=== PATIENT | female | born 1955 | race Caucasian/White ===

== ENCOUNTER 2017-03-03 07:37 | Day surgery (SDC) | payer BC, OTHER ==
[2017-03-01 14:36] VITALS: BMI 31.6
[~2017-03-03 07:37] MED LIST: LACTATED RINGERS 1,000 ML IV SCH; LIDOCAINE 1% 20 ML VIAL (10MG/ML) FOR IV START INTRADERMA PRN
[2017-03-03 08:03] VITALS: TEMP 97.8
[2017-03-03 08:11] LABS: Glucose,Whole Blood 144 mg/dL (75-99)
[2017-03-03] MEDS ORDERED: PROPOFOL 10 MG/ML 20 ML VIAL IV ONE (08:35)
--- NOTE | 2017-03-03 09:00 | P.PCN ---
Date of Procedure: 03/03/17 Procedure(s) Performed: BRIEF HISTORY: Patient is a 61-year-old pleasant white female, scheduled for an elective colonoscopy as a part of screening for colorectal neoplasia. PROCEDURE PERFORMED: Colonoscopy and snare polypectomy. PREOPERATIVE DIAGNOSIS: Screening for colon cancer. IV sedation per Anesthesia. PROCEDURE: After informed consent was obtained, the patient, was brought into the endoscopy unit. IV sedation was administered by Anesthesia under continuous monitoring. Digital rectal examination was normal. Initially the Olympus CF- 160 flexible video colonoscope was then inserted in the rectum, gradually advanced into the cecum without any difficulty. Careful examination was performed as the scope was gradually being withdrawn. Ileocecal valve and the appendiceal orifice were visualized and appeared normal. Prep was excellent. Mucosa of the cecum, ascending colon, transverse colon, descending colon, up in normal. In the sigmoid colon there was a 7-8 mm polyp removed by snare polypectomy. In the proximal rectum there was 2 polyps measuring 5 mm in size both of which were removed by snare polypectomy. The rest of the sigmoid colon , and rectum appeared normal. Retroflexion was performed in the rectum and no lesions were seen. The patient tolerated the procedure well. IMPRESSION: 7-8 mm sigmoid colon polyp serous was snare polypectomy. 5 mm 2 proximal rectal polyp status post polypectomy RECOMMENDATIONS: Findings of this examination were discussed with the patient as well as her family. She was advised to follow with the biopsy results. If the biopsy shows a tubular adenoma she can have a repeat colonoscopy in in 5 years.
[2017-03-03 09:07] VITALS: RESP 16
[2017-03-03 09:27] VITALS: BP 109/72; PULSE 72
== END 2017-03-03 09:43 | disposition home or self-care (01) ==
LOC: ORWHC2ENDO 07:37
PROVIDERS: ATTEND Internal Medicine Gastroenterology
DX: Z12.11 Encounter for screening for malignant neoplasm of colon (principal); D12.5 Benign neoplasm of sigmoid colon; D12.8 Benign neoplasm of rectum; I10 Essential (primary) hypertension; E11.9 Type 2 diabetes mellitus without complications; Z79.84 Long term (current) use of oral hypoglycemic drugs; F32.9 Major depressive disorder, single episode, unspecified; Z79.899 Other long term (current) drug therapy
CPT/HCPCS: 88305; 45385; J2704

== ENCOUNTER → 2018-03-02 | Outpatient (CLI) | payer BC ==
[2018-03-02 10:07] LABS: ALT 54 U/L (9-52); AST 46 U/L (14-36); Cholesterol 251 mg/dL (<200); HDL Cholesterol 39 mg/dL (40-60); LDL Cholesterol,Calculated 172 mg/dL (0-99); Triglycerides 198 mg/dL (<150)
== END ==
LOC: LABWHC1 08:19
PROVIDERS: ATTEND Internal Medicine
DX: E78.00 Pure hypercholesterolemia, unspecified (principal); K76.89 Other specified diseases of liver
CPT/HCPCS: 36415; 80061; 84450; 84460

== ENCOUNTER → 2019-06-02 | Outpatient (CLI) | payer MEDICARE ==
--- NOTE | 2019-06-02 14:16 | MR ---
EXAMINATION TYPE: MR brain wo/w con DATE OF EXAM: 06/02/2019 COMPARISON: NONE HISTORY: Cerebral infarction / Imbalance / Falls TECHNIQUE: Multiplanar, multisequence images of the brain and brainstem is performed without and with IV contras t, utilizing 10 mL intravenous Gadavist . FINDINGS: Diffusion weighted images demonstrate no evidence of a recent infarct or other diffusion ab normality. There is no extra-axial fluid collection. Scattered foci of T2/FLAIR hyperintensity are s een within the periventricular and some cortical white matter, mild in degree. The ventricular system and cisternal spaces are symmetrically prominent compatible with age-related volume loss. However gi remedios the prominence of the ventricular system normal pressure hydrocephalus could also be considered. There appears to be more prominence of the left ventricular system possibly from mild ex vacuo dilata tion of the posterior horn of the left lateral ventricle from lacunar injury with surrounding gliosis . Midline structures demonstrate normal morphology. The craniocervical junction appears within normal limits. Post contrast images demonstrate no abnormal enhancement. The dural venous sinuses appear pa tent. Variant venous drainage is seen. The visualized sinuses are clear and the globes are intact. Th ere is leftward nasal septal deviation present. IMPRESSION: 1. In addition to age-related volume loss there is diffuse ventricular prominence that may relate to normal pressure hydrocephalus. 2. Slight asymmetry and dilatation of the left lateral ventricle and surrounding gliosis of the occip ital horn likely from prior lacunar injury. 3. Mild burden nonspecific white matter change, likely on the basis of chronic microangiopathy. 4. No acute infarct, midline shift or mass effect. No abnormal intracranial enhancement.
== END | disposition home or self-care (01) ==
LOC: RADMRIMAIN 11:20
PROVIDERS: ATTEND Psychiatry & Neurology Neurology
DX: I63.9 Cerebral infarction, unspecified (principal); D49.9 Neoplasm of unspecified behavior of unspecified site; R26.89 Other abnormalities of gait and mobility; R41.3 Other amnesia
CPT/HCPCS: 70553; A9585

== ENCOUNTER 2020-01-06 08:27 | Emergency (ER) | payer MEDICARE ==
[2020-01-06 08:31] VITALS: RESP 16
--- NOTE | 2020-01-06 08:53 | ED ---
Eye Problem HPI - General Chief complaint: Eye Problems Stated complaint: Eye irritation Time Seen by Provider: 01/06/20 08:36 Source: patient Mode of arrival: ambulatory Limitations: no limitations - History of Present Illness Initial comments: This a 64-year-old female presents emergency Department chief complaint of right eye vision changes. Patient states that she was addressed smoking last night and she suddenly started having a change in her vision. She states that she can see a black C-shaped area from 2:00 to 10 o'clock position. Patient also states her small black dots below this. She has no complaints of pain. She states that she does get her regular ophthalmology exams Dr. Rust. Patient is a known diabetic states her A1c has been within normal limits at this time. She denies any trauma. - Related Data Home Medications Medication Instructions Recorded Confirmed Enalapril/Hydrochlorothiazide 1 tab PO QAM 04/04/14 03/03/17 [Enalapril-Hctz 10-25 mg Tablet] Exenatide [Byetta] 10 mcg SQ BID 04/04/14 03/03/17 Naproxen Sodium [Aleve] 220 mg PO Q12HR 04/04/14 03/03/17 metFORMIN HCL [Glucophage] 1,000 mg PO BID 04/06/14 03/03/17 Citalopram Hydrobromide [CeleXA] 20 mg PO DAILY 03/01/17 03/03/17 Actos(Unk Dose) 1 tab PO DAILY 03/02/17 03/03/17 Allergies Allergy/AdvReac Type Severity Reaction Status Date / Time No Known Allergies Allergy Verified 01/06/20 08:31 Review of Systems ROS Statement: Those systems with pertinent positive or pertinent negative responses have been documented in the HPI. ROS Other: All systems not noted in ROS Statement are negative. Past Medical History Past Medical History: Cancer, Diabetes Mellitus, Sleep Apnea/CPAP/BIPAP Additional Past Medical History / Comment(s): SKIN CA. CPAP @ 9L History of Any Multi-Drug Resistant Organisms: None Reported Past Surgical History: Tubal Ligation Additional Past Surgical History / Comment(s): D&C; skin graft for CA on side of nose Past Anesthesia/Blood Transfusion Reactions: No Reported Reaction Past Psychological History: Depression Smoking Status: Former smoker - Past Family History Mother Family Medical History: Cancer Additional Family Medical History / Comment(s): LUNG CA. General Exam General appearance: alert, in no apparent distress Head exam: Present: atraumatic, normocephalic, normal inspection Eye exam: Present: normal appearance, PERRL, EOMI. Absent: scleral icterus, conjunctival injection, periorbital swelling Pupils: Present: normal accommodation Expanded Eyelids: Normal Inspection: Bilateral Pupils: Regular, Round: Bilateral Sclera/Conjunctival: Normal Inspection: Bilateral Visual acuity (R) = 20/: 200 Visual acuity (L) = 20/: 50 With correction: Yes IOP (R) in mmH IOP (L) in mmH IOP measured with: [employer]open ENT exam: Present: normal exam, normal oropharynx, mucous membranes moist Neck exam: Present: normal inspection, full ROM. Absent: tenderness, meningismus, lymphadenopathy Respiratory exam: Present: normal lung sounds bilaterally. Absent: respiratory distress, wheezes, rales, rhonchi, stridor Cardiovascular Exam: Present: regular rate, normal rhythm, normal heart sounds. Absent: systolic murmur, diastolic murmur, rubs, gallop, clicks Neurological exam: Present: alert, oriented X3 Skin exam: Present: warm, dry, intact, normal color. Absent: rash Course Vital Signs 01/06/20 08:28 Temperature 98.5 F Pulse Rate 77 Respiratory 16 Rate Blood Pressure 182/75 O2 Sat by Pulse 98 Oximetry Medical Decision Making - Medical Decision Making I discussed the case with Dr. Jurado on-call chorus dancer who feels this most likely is a hemorrhage related to her diabetes. I did express my concern for possible retinal detachment this is felt to be less likely by chorus dancer. Patient does see Dr. Rust. He recommended to follow up with him in office Wednesday. I did have staph leave a message with Dr. Rust regarding patient and symptoms for close follow-up. We discussed very strict return parameters. Disposition Clinical Impression: Subjective visual disturbance, right eye Disposition: HOME SELF-CARE Condition: Stable Instructions (If sedation given, give patient instructions): Blurred Vision (ED) Additional Instructions: Please return to the Emergency Department if symptoms worsen or any other concerns. Is patient prescribed a controlled substance at d/c from ED?: No Referrals: Azul Salazar MD [Primary Care Provider] - 1-2 days Clinton Rust MD [STAFF PHYSICIAN] - 1-2 days Time of Disposition: 09:42
[2020-01-06 09:48] VITALS: BP 123/76; PULSE 78; TEMP 98
== END 2020-01-06 09:46 | disposition home or self-care (01) ==
LOC: EC 08:27
DX: H53.10 Unspecified subjective visual disturbances (principal); E11.9 Type 2 diabetes mellitus without complications; G47.30 Sleep apnea, unspecified; F32.9 Major depressive disorder, single episode, unspecified; Z87.891 Personal history of nicotine dependence; Z79.1 Long term (current) use of non-steroidal anti-inflammatories (NSAID); Z79.84 Long term (current) use of oral hypoglycemic drugs; Z79.899 Other long term (current) drug therapy; Z85.828 Personal history of other malignant neoplasm of skin; Z98.890 Other specified postprocedural states; Z99.89 Dependence on other enabling machines and devices
CPT/HCPCS: 99284

== ENCOUNTER → 2021-11-04 | Outpatient (CLI) | payer MEDICARE ==
--- NOTE | 2021-11-06 07:56 | MR ---
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 TECHNIQUE: Multiplanar, multiecho imaging on a 3.0 Batool magnet is performed through the brain. Stud y is performed within 24 hours of arrival to the hospital. The craniovertebral junction is normal. The pituitary is normal. Diffusion-weighted imaging is performed. No abnormal hyperintensity is present to suggest an acute i ntracranial infarct or acute ischemic change. There are scattered punctate periventricular white matter hyperintensities which are nonspecific but can be related to microvascular ischemic change. Lateral ventricles are somewhat prominent without te mporal horn dilatation. Occipital lobes appear normal. No abnormal enhancement is evident. The optic chiasm appears normal. IMPRESSIONS: 1. Atrophy with chronic appearing periventricular white matter ischemic changes. 2. Ventricles are somewhat prominent without temporal horn dilatation. This may be somewhat progressi ve.
== END | disposition home or self-care (01) ==
LOC: RADMRIMAIN 10:51
PROVIDERS: ATTEND Internal Medicine
DX: I67.82 Cerebral ischemia (principal); G31.89 Other specified degenerative diseases of nervous system
CPT/HCPCS: 70553; A9585

== ENCOUNTER → 2022-09-08 | Outpatient (CLI) | payer MEDICARE ==
--- NOTE | 2022-09-08 12:09 | XR ---
EXAMINATION TYPE: XR foot complete LT DATE OF EXAM: 09/08/2022 COMPARISON: None HISTORY: Left foot spur TECHNIQUE: 3 view left foot FINDINGS: Plantar calcaneal heel spur is present. Soft tissues appear normal. No acute fracture or di slocation is evident. Os cuboideum, a normal variant, is present. Joint spaces appear preserved. Old stress fracture of the mid fourth metatarsal is not excluded. No acute fractures evident. IMPRESSION: 1. No acute osseous abnormality left foot. 2. There may be old stress fracture of the fourth metatarsal. 3. Plantar calcaneal heel spur.
== END | disposition home or self-care (01) ==
LOC: RADXRYALE 11:18
PROVIDERS: ATTEND Internal Medicine
DX: M77.32 Calcaneal spur, left foot (principal)